=== PATIENT | female | born 1980 | race American Indian/Alaskan Native ===

== ENCOUNTER 2018-01-12 19:42 | Emergency (ER) | payer SELFPAY ==
[2018-01-12 19:59] VITALS: BP 101/75
[2018-01-12] MEDS ORDERED: TYLENOL PO ONE (20:00)
[2018-01-12 20:24] LABS: Bilirubin,Urine NEG (Negative); Blood,Urine NEG (Negative); Color,Urine Yellow (Yellow); Mucus,Urine FEW /HPF; Protein,Urine <15 mg/dL mg/dL (Negative); RBC,Urine < 1.0 /HPF (0.0-6.0)
[2018-01-12 20:27] LABS: HCG Qualitative,Urine Negative (Negative)
[2018-01-13] MEDS ORDERED: TORADOL IM ONE (00:20)
--- NOTE | 2018-01-13 00:52 | Emergency Department Report ---
ED Female HPI - General Chief complaint: Abdominal Pain Stated complaint: ABDOMINAL PAIN Time Seen by Provider: 01/13/18 00:19 Source: patient Mode of arrival: Ambulatory Limitations: No Limitations - History of Present Illness Initial comments: 37-year-old -[place] female presents to the emergency room for having intercourse and then started having suprapubic pain and burning at the end of urination 30 minutes prior to arrival. Patient denies any vaginal bleeding denies any vaginal discharge. Patient reports she has had this in the past and she was also told that she had uterine fibroids. Patient is followed by my OB/ [facility] last saw 3 months ago. Patient's had a tubal ligation. Patient had not taken anything for pain prior to arrival. Patient reports her pain is 8 out of 10. Currently takes no medications on a daily basis past medical history of seizures and uterine fibroids. MD Complaint: pelvic pain -: minutes(s) (30 ATTORNEY) Radiation: suprapubic Severity scale (0 -10): 8 Quality: sharp Consistency: intermittent Improves with: none Worsens with: urination Are you Now?: No Last Menstrual Period: 12/29/17 EDC: 10/05/18 Associated Symptoms: denies other symptoms - Related Data Sexually active: Yes (men) Home Medications Medication Instructions Recorded Confirmed Last Taken levETIRAcetam [Keppra TAB] 500 mg PO BID 03/27/16 03/27/16 Unknown Allergies Allergy/AdvReac Type Severity Reaction Status Date / Time No Known Allergies Allergy Verified 01/13/18 00:21 ED Review of Systems ROS: Stated complaint: ABDOMINAL PAIN Other details as noted in HPI Comment: All other systems reviewed and negative Genitourinary: dyspareunia, other (suprapubic) ED Past Medical Hx - Past Medical History Hx Seizures: Yes Additional medical history: Uterine Fibroids. - Surgical History Additional Surgical History: tubal ligation - Social History Smoking Status: Never Smoker Substance Use Type: None - Medications Home Medications: Home Medications Medication Instructions Recorded Confirmed Last Taken Type levETIRAcetam [Keppra TAB] 500 mg PO BID 03/27/16 03/27/16 Unknown History ED Physical Exam - General Limitations: No Limitations General appearance: alert, in no apparent distress - Head Head exam: Present: atraumatic, normocephalic - Eye Eye exam: Present: EOMI - ENT ENT exam: Present: mucous membranes moist - Respiratory Respiratory exam: Present: normal lung sounds bilaterally. Absent: respiratory distress - Cardiovascular Cardiovascular Exam: Present: regular rate, normal rhythm. Absent: systolic murmur, diastolic murmur, rubs, gallop - GI/Abdominal GI/Abdominal exam: Present: soft, tenderness. Absent: distended, guarding, rebound, rigid - Extremities Exam Extremities exam: Present: normal inspection, full ROM - Back Exam Back exam: Present: normal inspection, full ROM. Absent: tenderness - Neurological Exam Neurological exam: Present: alert, oriented X3 - Psychiatric Psychiatric exam: Present: normal affect, normal mood - Skin Skin exam: Present: warm, dry, intact, normal color. Absent: rash ED Course Vital Signs 01/12/18 01/13/18 19:54 01:09 Temperature 98.5 F Pulse Rate 86 Respiratory 16 20 Rate Blood Pressure 101/75 O2 Sat by Pulse 100 Oximetry ED Medical Decision Making - Medical Decision Making Patient's been evaluated but this provider fast track. Tylenol was given in triage. Urinalysis and test came back negative. Give patient a Toradol injection 30 mg IM for pain management in fast track. Patient declined to have CT of abdomen states she has to go home. Critical care attestation.: If time is entered above; I have spent that time in minutes in the direct care of this critically ill patient, excluding procedure time. ED Disposition Clinical Impression: Abdominal pain Disposition: DC-07 LEFT AGAINST MED ADVICE Is pt being admited?: No Does the pt Need Aspirin: No Condition: Stable Instructions: Abdominal Pain (ED) Referrals: PRIMARY CARE, [Primary Care Provider] - 3-5 Days Forms: AMA Form
== END 2018-01-13 02:13 | disposition left against medical advice (07) ==
LOC: ED 19:42
DX: R10.2 Pelvic and perineal pain (principal)
CPT/HCPCS: 81001; 81025; 96372; 99283; J1885

== ENCOUNTER 2019-01-23 06:09 | Observation (INO) | payer MEDICAID ==
[2019-01-22 14:19] LABS: Basophils # (Auto) 0.1 K/mm3 (0.0-0.1); Basophils % (Auto) 1.5 % (0.0-1.8); Eosinophils # (Auto) 0.1 K/mm3 (0.0-0.4); Eosinophils % (Auto) 1.4 % (0.0-4.3); Hematocrit 34.2 % (30.3-42.9); Hemoglobin 11.2 gm/dl (10.1-14.3); Lymphocytes # (Auto) 1.3 K/mm3 (1.2-5.4); Lymphocytes % (Auto) 34.9 % (13.4-35.0); Mean Corpuscular HGB Conc 33 % (30-34); Mean Corpuscular Volume 83 fl (79-97); Monocytes # (Auto) 0.4 K/mm3 (0.0-0.8); Monocytes % (Auto) 9.4 % (0.0-7.3); Platelet Count 203 K/mm3 (140-440); Red Blood Count 4.11 M/mm3 (3.65-5.03)
[2019-01-23] MEDS ORDERED: BACTERIOSTATIC SODIUM CHLORIDE 0.9% 30 ML VIAL INFILTRATI ONE (06:51)
[2019-01-23] MEDS ORDERED: SODIUM CHLORIDE 0.9% 1000 ML 1,000 ML IV SCH (07:00)
[2019-01-23] MEDS ORDERED: HYDROmorphone 1 MG/1 ML INJ ONE (07:36)
[2019-01-23] MEDS ORDERED: PROPOFOL 200 MG/20 ML VIAL IV ONE (07:36)
[2019-01-23] MEDS ORDERED: ROCURONIUM 50 MG/5 ML INJ IV ONE (07:41)
[2019-01-23] MEDS ORDERED: SODIUM CHLORIDE 0.9% 1000 ML 1,000 ML ONE (07:41)
[2019-01-23] MEDS ORDERED: LIDOCAINE MPF (2%) 20 MG/1 ML VIAL 5 ML ONE (07:41)
[2019-01-23] MEDS ORDERED: ceFAZolin/STERILE WATER 2 GM/20 ML SYRINGE IV NR (08:10)
[2019-01-23] MEDS ORDERED: ONDANSETRON 4 MG/2 ML INJ ONE (10:04)
[2019-01-23] MEDS ORDERED: dexAMETHasone 20 MG/5 ML VIAL ONE (10:04)
[2019-01-23] MEDS ORDERED: METHYLENE BLUE 50 MG/10 ML AMP ONE (10:30)
[2019-01-23] MEDS ORDERED: METHYLENE BLUE 50 MG/10 ML AMP IV ONE (10:40)
[2019-01-23] MEDS ORDERED: NEOSTIGMINE 10MG/10 ML INJ MDV ONE (10:56)
[2019-01-23] MEDS ORDERED: GLYCOPYRROLATE 0.4 MG/2 ML INJ ONE (10:57)
[2019-01-23] MEDS ORDERED: SODIUM CHLORIDE 0.9% IRR 1,500 ML BOTTLE IR ONE (11:00)
[2019-01-23] MEDS ORDERED: HYDROcodone/ACETAMINOPHEN 5-325 MG TAB PO PRN (11:01)
[2019-01-23] MEDS ORDERED: NALOXONE 0.4 MG/1 ML INJ IV PRN (11:01)
[2019-01-23] MEDS ORDERED: MORPHINE 2 MG/1 ML INJ IV PRN (11:01)
--- NOTE | 2019-01-23 11:24 | Operative Report ---
Operative Report Operative Report: Date of surgery: 01/23/2019 Admitting diagnosis: Abnormal uterine bleeding, uterine fibroids. Postoperative diagnoses: Same. Procedure: Laparoscopically assisted vaginal hysterectomy, cystoscopy. Surgeon: Claus Frank MD Anesthesiologist: Riley Leslie MD Optical Designer: David Greene CRNA Anesthesia: Gen. anesthesia EBL: 300 mL Complications: None Findings:Intraperitoneally, the fallopian tubes were noted to have been disrupted at a prior surgical session. There was around metallic clip seen attached family to the anterior surface of the greater omentum. Both ovaries were grossly normal. The uterus was bulky in size. The liver on the undersurface of the diaphragm were grossly normal. There were no other abnormalities observed within the peritoneal cavity. The vulva vagina and cervix were grossly normal. Procedure in details: The patient was taken to the operating room and was given a general anesthesia. The patient was then put in the lithotomy position and prepped in the vulva vagina and abdomen. The drapes were placed. A timeout was done. With the go ahead from the interactive producer, an indwelling Rose catheter was inserted. The cervix was stabilized with a single-tooth tenaculum forceps and an acorn,. At the navel, a stab incision was made. The Veress needle was inserted, making sure to point the tip of this instrument into the free hollow of the pelvis. The Veress needle was initially aspirated and no blood was drawn. The Veress needle was then flushed through with a small quantity of sterile normal saline without any resistance. The general peritoneal cavity was thereafter insufflated with 3.5 L of carbon dioxide. A 5 mm port with its trocar were inserted making sure again to point the tip of this instrument towards the free hollow of the pelvis. The laparoscope confirmed successful access to the peritoneal cavity subsequently. 2 additional 5 mm ports were placed one for each flank under guidance with the laparoscope. A general examination of the peritoneal cavity was done. The findings are reported above. The endoscopic ligation was used to excise the remnants of the fallopian tubes from its attachments to the ovaries all the way to the uterine cornua. The broad ligament was then divided from the round ligaments and close to the lateral aspects of the uterus all the way to the top of the cervix. This was done for both sides. The J-hook Bovie was used to thermally coagulate the utero peritoneal flap over the cervix. This allowed the bladder to be displaced distally with the blunt probe. The procedure continued vaginally. The acorn cannula was removed. A circumferential incision was made into the nucleus sharp on the external cervix distal to the palpated reflection of the urinary bladder. The bladder was then bluntly dissected off of the cervix using the Kitner. The anterior colpotomy was easily established allowed and retractors replaced within the opening. The posterior colpotomy was established by cutting into the posterior cul-de-sac with the Swenson's scissors. The blade of the weighted vaginal speculum was placed into the posterior colpotomy. The Enseal was then used to thermally coagulate and divide the remaining attachments of the uterus to the pelvic sidewall. Specimen was removed and secured for histopathology. The vagina was sewn with a running suture of #0 Vicryl having achieved satisfactory hemostasis. The vagina vault was subsequently closed with figure of 8 suture of 0 Vicryl. Cystoscopy was done. The patient was given 50 mg of methylene blue. Both ureteric orifices were seen with urine ejecting from both. The urine was clear. There was no injuries to the bladder wall. Intraperitoneally, there was no extravasation of urine into the peritoneal cavity. There was no bleeding within the peritoneal cavity. The pneumoperitoneum was deflated after inspecting the access points using the laparoscope. All instruments were withdrawn. The 3 stab incisions were sealed with Dermabond. All sponges and instruments were accounted for. There were no complications. The estimated blood loss was 300 mL. The patient tolerated the procedure well and was transferred to the recovery room in very good condition.
--- NOTE | 2019-01-23 12:56 | Anesthesia Consultation ---
Anesthesia Consult and Med Hx Date of service: 01/23/19 - Airway Anesthetic Teeth Evaluation: Good ROM Head & Neck: Adequate Mental/Hyoid Distance: Adequate Mallampati Class: Class II Intubation Access Assessment: Probably Good - Pulmonary Exam CTA: Yes - Cardiac Exam Cardiac Exam: RRR - Pre-Operative Health Status ASA Pre-Surgery Classification: ASA2 Proposed Anesthetic Plan: General - Pulmonary Hx Smoking: No Hx Respiratory Symptoms: No - Cardiovascular System Hx Hypertension: No Hx Heart Attack/AMI: No - Central Nervous System Hx Seizures: Yes (Last 2-3 yrs ago) - Gastrointestinal Hx Gastroesophageal Reflux Disease: No - Endocrine Hx Renal Disease: No Hx Liver Disease: No Hx Insulin Dependent Diabetes: No Hx Non-Insulin Dependent Diabetes: No Hx Thyroid Disease: No - Hematic Hx Anemia: Yes - Other Systems Hx Obesity: No
--- NOTE | 2019-01-23 12:57 | Post Anesthesia Evaluation ---
- Post Anesthesia Evaluation Patient Participated: Yes Airway Patent: Yes Stable Respiratory Function: Yes Nausea/Vomiting: No Temp > 96.8F: Yes Pain Manageable: Yes Adequeate Hydration: Yes Anesthesia Complications: No
--- NOTE | 2019-01-23 12:57 | Anesthesia Day of Surgery ---
Anesthesia Day of Surgery - Day of Surgery Patient Examined: Yes Patient H&P Reviewed: Yes Patient is NPO: Yes
[2019-01-23 16:53] VITALS: BP 102/67
== END 2019-01-23 17:00 | disposition home or self-care (01) ==
LOC: OR 06:09 → OB 11:01
PROVIDERS: ADMIT Obstetrics & Gynecology; ATTEND Obstetrics & Gynecology
DX: N93.9 Abnormal uterine and vaginal bleeding, unspecified (principal)
CPT/HCPCS: 36415; 58552; 84703; 85025; 86850; 86900; 86901; 88307; G0378; J1100; J1170; J2405; J2704; J2710; J7030; Q9968